=== PATIENT | female | born 1955 | race Caucasian/White ===

== ENCOUNTER → 2018-10-20 13:53 | Outpatient (CLI) | payer OTHER, SELFPAY ==
--- NOTE | 2018-10-20 | DI.MG.S_ITS ---
BILATERAL DIGITAL SCREENING MAMMOGRAM 3D/2D WITH CAD: 10/20/2018 CLINICAL: Routine screening. Comparison is made to exams dated: 12/09/2014 mammogram, 11/27/2006 mammogram, and 05/07/2003 mammogram - [facility]. The tissue of both breasts is predominantly fatty. Current study was also evaluated with a Computer Aided Detection (CAD) system. No significant masses, calcifications, or other findings are seen in either breast. There has been no significant interval change. IMPRESSION: NEGATIVE There is no mammographic evidence of malignancy. A 1 year screening mammogram is recommended. This exam was interpreted at Station ID: [id number]. NOTE: For mammograms, a report in lay terms will be sent to the patient. Approximately 15% of breast malignancies will not be visualized mammographically. In the management of a palpable breast mass, a negative mammogram must not discourage biopsy of a clinically suspicious lesion. Electronically Signed By: Zain braun/marleny:10/20/2018 16:37:56 letter sent: Normal Exam ACR BI-RADS Category 1: Negative 3341F
== END ==
PROVIDERS: PCP Family Medicine; Visit Provider Family Medicine
DX: Z12.31 Encounter for screening mammogram for malignant neoplasm of breast (principal)
CPT/HCPCS: 77063; 77067

== ENCOUNTER → 2020-12-03 10:49 | Outpatient (CLI) | payer OTHER, BC, SELFPAY ==
--- NOTE | 2020-12-03 10:54 | DI.MG.S_ITS ---
BILATERAL DIGITAL SCREENING MAMMOGRAM 3D/2D WITH CAD: 12/03/2020 CLINICAL: Routine screening. Comparison is made to exams dated: 10/20/2018 mammogram, 12/09/2014 mammogram, and 11/27/2006 mammogram - [facility]. The tissue of both breasts is predominantly fatty. Current study was also evaluated with a Computer Aided Detection (CAD) system. No significant masses, calcifications, or other findings are seen in either breast. There has been no significant interval change. IMPRESSION: NEGATIVE There is no mammographic evidence of malignancy. A 1 year screening mammogram is recommended. This exam was interpreted at Station ID: [id number]. NOTE: For mammograms, a report in lay terms will be sent to the patient. Approximately 15% of breast malignancies will not be visualized mammographically. In the management of a palpable breast mass, a negative mammogram must not discourage biopsy of a clinically suspicious lesion. Electronically Signed By: Damián Sanchez M.D., jr/marleny:12/05/2020 09:30:35 letter sent: Normal Exam ACR BI-RADS Category 1: Negative 3341F
== END ==
PROVIDERS: PCP Family Medicine; Referring Provider Family Medicine; Visit Provider Family Medicine
DX: Z12.31 Encounter for screening mammogram for malignant neoplasm of breast (principal)
CPT/HCPCS: 77063; 77067

== ENCOUNTER → 2022-09-21 16:16 | Outpatient (CLI) | payer MEDICARE, SELFPAY ==
[2022-09-21 17:34] LABS: Add Manual Diff / Slide Review NO; Basophils Absolute Auto 0 /uL (0-100); Basophils Percent Auto 0.3 % (0-2); Eosinophils Absolute Auto 100 /uL (0-450); Eosinophils Percent Auto 1.3 % (2-4); Hematocrit 45.4 % (36-46); Hemoglobin 16.1 g/dL (12.0-16.0); Lymphocytes Absolute Auto 2500 /uL (1100-4500); Lymphocytes Percent Auto 28.1 % (25-40); Mean Corpuscular HGB Conc 35.5 % (30-36); Mean Corpuscular Hemoglobin 33.6 PG (26-34); Mean Corpuscular Volume 94.5 fL (80-100); Monocytes Absolute Auto 700 /uL (0-900); Monocytes Percent Auto 7.9 % (3-14); Neutrophils Absolute Auto 5600 /uL (1500-7000); Neutrophils Percent Auto 62.4 % (50-75); Platelet Count 110 X10^3/uL (150-400); Red Cell Distribution Width 13.2 % (11.6-14.8); White Blood Cell Count 8.9 X10^3/uL (4.5-11.0)
[2022-09-21 18:06] LABS: Alanine Aminotransferase 31 IU/L (<35); Albumin 4.4 g/dL (3.5-5.0); Albumin Globulin Ratio 1.4 (1.0-2.8); Alkaline Phosphatase 74 U/L (38-126); Amylase 59 U/L (30-110); Aspartate Aminotransferase 34 IU/L (14-36); BUN Creatinine Ratio 25.8 (6-22); Bilirubin Total 0.5 mg/dL (0.2-1.3); Blood Urea Nitrogen 17 mg/dL (7-17); C-Reactive Protein Quant < 0.5 mg/dL (<1.0); Calcium 9.3 mg/dL (8.4-10.2); Carbon Dioxide 27 mmol/L (22-32); Chloride 107 mmol/L (98-107); Estimated Glomerular Filt Rate > 60 mL/min (>60); Globulin 3.1 g/dL (1.7-4.1); Glucose 76 mg/dL (80-110); HEMOLYSIS < 15 (0-50); Lipase 64 U/L (23-300); Potassium 3.4 mmol/L (3.4-5.1); Sodium 143 mmol/L (137-145); Total Protein 7.5 g/dL (6.3-8.2)
[2022-09-21 18:13] LABS: NT-proBNP (BNP-Adult 18+) 198 pg/mL (<125)
[2022-09-21 21:35] LABS: Erythrocyte Sedimentation Rate 5 MM/HR (0-20)
== END ==
PROVIDERS: PCP Family Medicine; Referring Provider Family Medicine; Visit Provider Family Medicine
DX: R10.13 Epigastric pain (principal); R01.1 Cardiac murmur, unspecified; R60.9 Edema, unspecified
CPT/HCPCS: 36415; 80053; 82150; 83690; 83880; 85025; 85651; 86140

== ENCOUNTER → 2022-09-27 13:39 | Outpatient (CLI) | payer MEDICARE, OTHER, SELFPAY ==
--- NOTE | 2022-09-27 | DI.ECHO.S_ITS ---
[facility]---------+ [facility] +---------+ : : [address] : : [address] : : : : [id number] : : : : Phone: [phone]+ Echocardiogram Report + + :Name: KIRSTIN ANGELO Study Date: 09/27/2022 Height: 66 in : :[facility] ReadingLocation: Weight: 210 lb : : Gender: Female BSA: 2.0 m2 : :: 1955 Age: 67 yrs BP: 163/83 mmHg: :Reason For Study: CARDIAC MURMUR : :Ordering Physician: BETHANY, : :LEXUS Performed By: Cyndi Schuler : :Referring: LEXUS SIMS : + + Interpretation Summary The study quality was technically difficult. The ejection fraction is estimated to be 55-60%. The right ventricle is normal in size and function. Pulmonary artery pressures cannot be estimated because of the lack of a measurable TR jet velocity but the IVC suggests a CVP of around 3 mmHg. There is mild aortic stenosis. There is mild aortic regurgitation. Procedure: A two-dimensional transthoracic echocardiogram with color flow and Doppler was performed. The study quality was technically difficult. There is no prior echocardiogram noted for this patient. The patient was in sinus rhythm with heart rates between 77-86 bpm during the exam. Left Ventricle: The left ventricle is normal in size and wall thickness. The ejection fraction is estimated to be 55-60%. There are no obvious focal wall motion abnormalities noted but poor endocardial definition reduces the sensitivity for the detection of such. Diastolic parameters suggest probable normal left ventricular diastolic function and normal filling pressures. Right Ventricle: The right ventricle is normal in size and function. Atria: The left atrial size is normal. Right atrial size is normal. There is no Doppler evidence for an interatrial shunt. Mitral Valve: The mitral valve is normal in structure and function. There is trace mitral regurgitation. Aortic Valve: The aortic valve is mildly calcified. The peak aortic velocity is 2.5 m/sec. The aortic valve mean gradient is 13 mmHg. There is mild aortic stenosis. There is mild aortic regurgitation. Tricuspid Valve: The tricuspid valve is normal in structure and function. No tricuspid regurgitation. Pulmonary artery pressures cannot be estimated because of the lack of a measurable TR jet velocity but the IVC suggests a CVP of around 3 mmHg. Pulmonic Valve: The pulmonic valve is not well visualized. There is no pulmonic valvular regurgitation. Great Vessels: The aortic root is normal size. The dimensions of the ascending aorta are normal. The IVC is of normal diameter and collapses greater than 50% with a sniff. This suggests a low right atrial pressure of 3 mm Hg. Pericardium/ Pleura There is no pericardial effusion. There is no pleural effusion. MMode/2D Measurements & Calculations LVIDd: 5.5 cm LVOT diam: 2.1 cm LVIDs: 3.3 cm Ao root diam: 3.0 cm FS: 39.5 % asc Aorta Diam: 3.2 cm EPSS: 0.91 cm Ao Arch Diam (Prox Trans): 3.1 cm IVSd: 1.1 cm LVPWd: 0.99 cm LV poole. diameter/BSA (cm/m^2): 2.7 LV sys. diameter/BSA (cm/m^2): 1.6 LA A2 area: 21.0 cm2 RA long axis: 4.6 cm LA A4 area: 20.6 cm2 RA area: 13.5 cm2 LA length (vol): 5.5 cm RA vol: 33.6 ml LA vol: 66.3 ml RA : 16.5 ml/m2 LA vol index: 32.5 ml/m2 IVC diam: 1.1 cm RVD1 (basal): 3.0 cm RVD2 (mid): 1.9 cm TAPSE: 2.2 cm Doppler Measurements & Calculations Ao V2 max: 250.0 cm/sec LVOT Max Tim: 124.9 cm/sec Ao V2 mean: 165.7 cm/sec LV V1 max P.3 mmHg Ao max P.0 mmHg LV V1 VTI: 26.7 cm Ao mean P.7 mmHg SVETLANA(I,D): 1.7 cm2 Ao V2 VTI: 52.5 cm SVETLANA(V,D): 1.7 cm2 sev ratio: 0.51 SVETLANA indexed to BSA (cm^2/m^2): 0.85 AI P1/2t: 466.7 msec AI dec slope: 212.8 cm/sec2 MV E max tim: 90.0 cm/sec PA pr(Accel): 49.9 mmHg MV A max tim: 134.8 cm/sec MV E/A: 0.67 Med Peak E' Tim: 7.9 cm/sec E/E' med: 11.4 Lat Peak E' Tim: 9.4 cm/sec E/E' lat: 9.6 E/e' average: 10.5 MV dec time: 0.22 sec SV(LVOT): 91.5 ml Reading Physician:PM
== END ==
PROVIDERS: PCP Family Medicine; Referring Provider Family Medicine; Visit Provider Family Medicine
DX: R01.1 Cardiac murmur, unspecified (principal); I35.0 Nonrheumatic aortic (valve) stenosis; I35.1 Nonrheumatic aortic (valve) insufficiency
CPT/HCPCS: 93306

== ENCOUNTER → 2023-07-19 12:49 | Outpatient (CLI) | payer MEDICARE, OTHER, SELFPAY ==
--- NOTE | 2023-07-19 | DI.MG.S_ITS ---
BILATERAL DIGITAL SCREENING MAMMOGRAM 3D/2D WITH CAD: 07/19/2023 CLINICAL: Routine screening. Comparison is made to exams dated: 12/03/2020 mammogram, 10/20/2018 mammogram, and 12/09/2014 mammogram - [facility]. There are scattered areas of fibroglandular density in both breasts (category b / 25%-50% glandular tissue). Current study was also evaluated with a Computer Aided Detection (CAD) system. No significant masses, calcifications, or other findings are seen in either breast. There has been no significant interval change. IMPRESSION: NEGATIVE There is no mammographic evidence of malignancy. A 1 year screening mammogram is recommended. Based on the Tyrer Cuzick model (a risk assessment model) the patient's lifetime risk is 6.9% and her 10 year risk is 3.5%. According to the ACR, ACS, and NCCN guidelines, an annual breast MRI exam along with mammogram is recommended if the patient's lifetime risk is 20% or greater. This exam was interpreted at Station ID: [id number]. NOTE: For mammograms, a report in lay terms will be sent to the patient. Approximately 15% of breast malignancies will not be visualized mammographically. In the management of a palpable breast mass, a negative mammogram must not discourage biopsy of a clinically suspicious lesion. Electronically Signed By: Jodi Caicedo M.D., PH.D marco/marelny:07/19/2023 23:27:34 letter sent: Normal Exam ACR BI-RADS Category 1: Negative 3341F
== END ==
LOC: MAMMO 12:50
PROVIDERS: PCP Family Medicine; Referring Provider Family Medicine; Visit Provider Family Medicine
DX: Z12.31 Encounter for screening mammogram for malignant neoplasm of breast (principal); R92.323 Mammographic fibroglandular density, bilateral breasts
CPT/HCPCS: 77063; 77067

== ENCOUNTER → 2023-09-16 11:54 | Outpatient (CLI) | payer MEDICARE, OTHER, SELFPAY ==
--- NOTE | 2023-09-16 11:56 | DI.RAD.S_ITS ---
PROCEDURE: XR DEXA AXIAL SKELETON INDICATIONS: POST MENOPAUSAL COMPARISON: None. FINDINGS: Lumbar Spine: Bone mineral density 1.086 g/cm2, T score 0.4, normal. Left femoral neck: Bone mineral density 0.724 g/cm2, T score -1.1, osteopenia. Left hip: Bone mineral density 0.911 g/cm2, T score -0.3, normal. Right Hip: Bone mineral density 0.883 g/cm2, T score -0.5, normal. Right Femoral Neck: Bone mineral density 0.79 g/cm2, T score -0.5, normal. Fracture Risk Calculation (when applicable): 10-year fracture risk of a major osteoporotic fracture 8.0 and of a hip fracture 1.1. (T score greater or equal to -1.0 to: NORMAL) (T score from -1.1 to -2.4: OSTEOPENIA) (T score less than or equal to -2.5: OSTEOPOROSIS) IMPRESSION: Osteopenia. Follow-up guidelines as follows: Osteoporosis: Consider a repeat DEXA and Vertebral Fracture Assessment (VFA) exam in 2 years or sooner if medically necessary, to reassess this patient's status. Osteopenia: Consider a repeat DEXA in 2-3 years to reassess this patient's status, or if there is a new clinical indication. Normal: Consider a repeat DEXA in 5 years or sooner, or if there is a new clinical indication. Dictated by: Madhu Hammond M.D. on 09/16/2023 at 14:30 Approved by: Madhu Hammond M.D. on 09/16/2023 at 14:31
== END ==
PROVIDERS: PCP Family Medicine; Referring Provider Family Medicine; Visit Provider Family Medicine
DX: Z13.820 Encounter for screening for osteoporosis (principal); Z78.0 Asymptomatic menopausal state; M85.80 Other specified disorders of bone density and structure, unspecified site
CPT/HCPCS: 77080

== ENCOUNTER 2024-03-02 11:22 | Inpatient (IN) | payer MEDICARE, OTHER, SELFPAY ==
[2024-03-02] VITALS (18 sets, daily range): BP systolic 116–211; BP diastolic 64–84; PULSE 80–92; RESP 12–39; TEMP 36.6–36.9; O2SAT 90–98; BMI 34.7
[2024-03-02 11:52] LABS: Add Manual Diff / Slide Review NO; Basophils Absolute Auto 0 /uL (0-100); Basophils Percent Auto 0.2 % (0-2); Eosinophils Absolute Auto 0 /uL (0-450); Eosinophils Percent Auto 0.1 % (2-4); Hematocrit 46.7 % (36-46); Hemoglobin 16.4 g/dL (12.0-16.0); Lymphocytes Absolute Auto 1600 /uL (1100-4500); Mean Corpuscular HGB Conc 35.2 % (30-36); Mean Corpuscular Hemoglobin 33.1 PG (26-34); Mean Corpuscular Volume 93.9 fL (80-100); Monocytes Absolute Auto 1200 /uL (0-900); Monocytes Percent Auto 6.7 % (3-14); Neutrophils Absolute Auto 15000 /uL (1500-7000); Platelet Count 155 X10^3/uL (150-400); Red Blood Cell Count 4.97 X10^6/uL (4.0-5.2); Red Cell Distribution Width 13.1 % (11.6-14.8); White Blood Cell Count 17.9 X10^3/uL (4.5-11.0)
--- NOTE | 2024-03-02 11:55 | EKG_ITS ---
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 Inferior infarct , age undetermined Electronically Signed On 03-02-2024 15:31:48 PDT by Noé Lewis
--- NOTE | 2024-03-02 12:01 | ED_ITS ---
HPI - Nausea/Vomiting/Diarrhea General Chief complaint: Weakness Stated complaint: Weakness, shaking Time Seen by Provider: 03/02/24 11:45 Source: patient, family, RN notes reviewed, old records reviewed and other (Dr. Sahni) Mode of arrival: Wheelchair Limitations: no limitations History of Present Illness HPI Narrative: 68-year-old female with history of hypertension, dyslipidemia, rheumatoid arthritis, Sjogren's and lupus who presents with complaint of feeling generally unwell epigastric pain without radiation, nausea occasional dry heaves, intermittent diarrhea that has been yellowish coloration for the past week. Patient states no fevers, she is felt chilled. Today she felt very shaky, went to her primary care physician and legs gave out while she was in the office has felt very weak in the last 24 hours. States she has had dry heaves but not constant. She has been able to keep some food and drink down. Describes epigastric pain without radiation elsewhere denies any chest pain or shortness of breath, no syncope. She states she has sometimes had forward bowel movements followed by diarrhea 2 or 3 times daily typically associated after she eats food. She states the stool has been bright yellow. Denies dysuria, urgency frequency or incontinence. No new swelling in extremities. Feet are little bit purplish in color patient and state that is her normal baseline and she has had vascular imaging in the past. Patient notes was started on chlorthalidone on by her primary care recently. She states no prior surgeries otherwise. States allergy to penicillin caused a seizure as well as sulfa. Smokes approximately pack and a half daily of tobacco, no regular alcohol, denies recreational drugs. Primary care is Dr. Sahni. Related Data Home Medications Medication Instructions Recorded Confirmed atorvastatin 10 mg tablet 10 mg PO DAILY 03/02/24 03/02/24 cevimeline 30 mg capsule 30 cap PO BID 03/02/24 03/02/24 chlorthalidone 25 mg tablet 25 mg PO DAILY 03/02/24 03/02/24 doxycycline hyclate 100 mg capsule 100 mg PO BID 03/02/24 03/02/24 furosemide 20 mg tablet 60 mg PO DAILY 03/02/24 03/02/24 hydroxychloroquine 200 mg tablet 200 mg PO BID 03/02/24 03/02/24 levothyroxine 75 mcg tablet 75 mcg PO DAILY 03/02/24 03/02/24 meloxicam 15 mg tablet 15 mg PO DAILY 03/02/24 03/02/24 nortriptyline 25 mg capsule 25 mg PO ONCE PM 03/02/24 03/02/24 omeprazole 20 mg capsule,delayed 20 mg PO BID 03/02/24 03/02/24 release venlafaxine 37.5 mg 37.5 mg PO DAILY 03/02/24 03/02/24 capsule,extended release 24 hr Allergies Allergy/AdvReac Type Severity Reaction Status Date / Time Penicillins Allergy Seizure Verified 03/02/24 11:28 Review of Systems Review of Systems ROS Unobtainable: All systems reviewed & are unremarkable except as noted in HPI and below Patient History Social History household members: spouse Smoking Status: Current every day smoker alcohol intake: never Smoking Status: Current every day smoker tobacco type: cigarettes Substance Use Type: does not use Exam Narrative Exam Narrative: GENERAL: Alert and oriented x three, female in mild distress HEENT: Head normocephalic, atraumatic, EOMI, pupils reactive, face symmetric, moist mucous membranes NECK: Supple, full range of motion CARDIOVASCULAR: Regular rate and rhythm without murmurs, rubs or gallops. No JVD. No edema bilateral lower extremities. RESPIRATORY: Breath sounds equal bilaterally, no wheezes rales or rhonchi. No tachypnea accessory muscle use. ABDOMEN: Soft, nontender. Nondistended. Normoactive bowel sounds all 4 quadrants. No guarding or rebound, rigidity, no mass : No CVA tenderness EXTREMITIES: Normal range of motion, no clubbing or edema. Sensation intact. Patient does have purple discoloration of her toes to the mid foot, patient has been note this is her normal. Bilateral extremities are warm to the touch. NEUROLOGICAL: Cranial nerves II through XII grossly intact. Moving all extremities SKIN: Warm, dry, no petechiae, no rashes or lesions otherwise noted. Initial Vital Signs Initial Vital Signs: Vital Signs Temperature 98.4 F 03/02/24 11:28 Pulse Rate 80 03/02/24 11:28 Respiratory Rate 20 03/02/24 11:28 Blood Pressure 173/72 H 03/02/24 11:28 Pulse Oximetry 98 03/02/24 11:28 Oxygen Delivery Method Room Air 03/02/24 11:28 Course Orders Ordered: ED Orders 03/02/24 11:42 Complete Blood Count AUTO DIFF Stat Comprehensive Metabolic Panel Stat Lactate (Lactic Acid) Stat Lipase Stat Procalcitonin Stat 03/02/24 11:46 EKG-12 Lead Stat 03/02/24 12:07 CT abdomen pelvis wo con Stat 03/02/24 12:20 Blood Culture Stat Lactated Ringer's (Lactated Ringers) 1,000 mls @ 150 mls/hr IV CONT TEENA Last Admin: 03/02/24 14:49 Dose: 150 mls/hr Documented By: RL Ondansetron HCl (Ondansetron 4 Mg/2 Ml Inj) 4 mg IV Q6HR PRN PRN Reason: Nausea And Vomiting Pantoprazole Sodium (Pantoprazole 40 Mg Vial) 20 mg IV DAILY TEENA Discontinued Medications Sodium Chloride (Normal Saline 0.9%) 1,000 mls @ 1,000 mls/hr IV BOLUS ONE Stop: 03/02/24 12:58 Last Infusion: 03/02/24 14:43 Dose: Infused Documented By: Admin: 03/02/24 12:33 Dose: 1,000 mls/hr Documented By: RL Lorazepam (Lorazepam 2 Mg/Ml Inj) 0.5 mg IV NOW ONE Stop: 03/02/24 12:54 Last Admin: 03/02/24 13:02 Dose: 0.5 mg Documented By: FATUMA Ondansetron HCl (Ondansetron 4 Mg/2 Ml Inj) 4 mg IV NOW ONE Stop: 03/02/24 12:00 Last Admin: 03/02/24 12:20 Dose: 4 mg Documented By: RL Potassium Chloride (Potassium Chloride 20 Meq Tab) 40 meq PO NOW ONE Stop: 03/02/24 12:08 Last Admin: 03/02/24 12:33 Dose: 40 meq Documented By: RL Vital Signs Vital signs: Vital Signs - 8 hr 03/02/24 11:28 03/02/24 11:57 03/02/24 12:01 Temperature 98.4 F Pulse Rate 80 91 H Respiratory Rate 20 24 Blood Pressure 173/72 H Pulse Oximetry 98 95 Oxygen Delivery Method Room Air Room Air Oxygen Flow Rate 03/02/24 12:01 03/02/24 12:30 03/02/24 12:30 Temperature Pulse Rate 89 Respiratory Rate 20 Blood Pressure 142/72 H 154/67 H Pulse Oximetry 94 Oxygen Delivery Method Room Air Oxygen Flow Rate 03/02/24 12:50 03/02/24 12:50 03/02/24 13:00 Temperature Pulse Rate 90 86 Respiratory Rate 15 24 Blood Pressure 179/79 H Pulse Oximetry 93 90 L Oxygen Delivery Method Oxygen Flow Rate 03/02/24 13:01 03/02/24 13:01 03/02/24 13:09 Temperature Pulse Rate 86 92 H Respiratory Rate 39 H 31 H Blood Pressure 180/77 H Pulse Oximetry 91 94 Oxygen Delivery Method Oxygen Flow Rate 03/02/24 13:09 03/02/24 13:30 03/02/24 13:31 Temperature Pulse Rate 87 87 Respiratory Rate 18 Blood Pressure 211/84 H Pulse Oximetry 94 95 Oxygen Delivery Method Oxygen Flow Rate 03/02/24 13:31 03/02/24 14:00 03/02/24 14:01 Temperature Pulse Rate 87 86 Respiratory Rate 21 Blood Pressure 169/74 H Pulse Oximetry 97 Oxygen Delivery Method Oxygen Flow Rate 03/02/24 14:01 03/02/24 14:30 03/02/24 14:30 Temperature Pulse Rate 87 Respiratory Rate 17 Blood Pressure 148/64 H 157/68 H Pulse Oximetry 95 Oxygen Delivery Method Nasal Cannula Oxygen Flow Rate 4 03/02/24 15:00 03/02/24 15:00 Temperature Pulse Rate 88 Respiratory Rate 15 Blood Pressure 157/70 H Pulse Oximetry 97 Oxygen Delivery Method Room Air Oxygen Flow Rate 0 MDM - Nausea/Vomiting/Diarrhea Lab Data 03/02/24 11:42 03/02/24 11:42 Labs: Lab Results 03/02/24 03/02/24 Range/Units 11:42 14:28 WBC 17.9 H (4.5-11.0) X10^3/uL RBC 4.97 (4.0-5.2) X10^6/uL Hgb 16.4 H (12.0-16.0) g/dL Hct 46.7 H (36-46) % MCV 93.9 (80-100) fL MCH 33.1 (26-34) PG MCHC 35.2 (30-36) % RDW 13.1 (11.6-14.8) % Plt Count 155 (150-400) X10^3/uL Neut % (Auto) 84.0 H (50-75) % Lymph % (Auto) 9.0 L (25-40) % [place] % (Auto) 6.7 (3-14) % Eos % (Auto) 0.1 L (2-4) % Baso % (Auto) 0.2 (0-2) % Neut # (Auto) 06175 H (7991-2161) /uL Lymph # (Auto) 1600 (6473-2935) /uL [place] # (Auto) 1200 H (0-900) /uL Eos # (Auto) 0 (0-450) /uL Baso # (Auto) 0 (0-100) /uL Sodium 136 L (137-145) mmol/L Potassium 3.1 L (3.4-5.1) mmol/L Chloride 98 (98-107) mmol/L Carbon Dioxide 24 (22-32) mmol/L BUN 39 H (7-17) mg/dL Creatinine 1.70 H (0.52-1.04) mg/dL Estimated GFR 33 L (>60) mL/min BUN/Creatinine Ratio 22.9 H (6-22) Glucose 129 H (80-110) mg/dL Lactate 3.2 H 1.2 (0.7-2.1) mmol/L Calcium 7.4 L (8.4-10.2) mg/dL Total Bilirubin 0.8 (0.2-1.3) mg/dL AST 43 H (14-36) IU/L ALT 33 (<35) IU/L Alkaline Phosphatase 84 (38-126) U/L Total Protein 7.5 (6.3-8.2) g/dL Albumin 4.4 (3.5-5.0) g/dL Globulin 3.1 (1.7-4.1) g/dL Albumin/Globulin Ratio 1.4 (1.0-2.8) Lipase 136 (23-300) U/L Procalcitonin 0.058 (<0.5) ng/mL Urine Dip Bedside Urine Glucose Negative Bedside Urine Bilirubin - Negative Bedside Urine Ketone - Negative Urine Specific [place] 1.015 Bedside Urine Occult Blood - Negative Bedside Urine pH 6.0 Bedside Urine Protein - Negative Bedside Urine Urobilinogen - Negative Bedside Urine Nitrite - Negative Bedside Urine Leukocytes - Negative Esterase Imaging Data CT scan - abdomen/pelvis: Radiologist's Impression: Close Abdomen/Pelvis CT (Signed) Garrick Duff - 03/02/24 Bone Densitometry (Signed) Madhu Hammond - 09/16/23 Mammogram Screening (Signed) Chalino Caicedoe - 07/19/23 Echocardiogram Ultrasound (Signed) Zev Chua - 09/27/22 Mammogram Screening (Signed) Damián Sanchez - 12/03/20 Mammogram Screening (Signed) Zavala,Zain - 10/20/18 Launch?[address] [address] [address] Scan Report Signed Patient: Billie Juarez MR#: [id number] : 1955 Acct:[id number] Age/Sex: 68 / F Date of Service: 03/02/24 Loc: ED Accession Number: [id number] Procedure: CT abdomen pelvis wo con Ordering Provider: Radha Marin D.O. PROCEDURE: CT ABDOMEN PELVIS WO CON INDICATIONS: n/v/diarrhea x 1 wk, winnie, no flank pain TECHNIQUE: Axial sections were acquired from the lung bases to the pubic symphysis. Coronal and sagittal reformats were performed. For radiation dose reduction, the following was used: automated exposure control, adjustment of mA and/or kV according to patient size. COMPARISON: None. FINDINGS: Image quality: Diagnostic. Lower Chest: 1.4 cm noncalcified pulmonary nodule, subpleural location, right lower lobe. URINARY: Right Kidney: No stones or hydronephrosis. Right Ureter: No hydroureter. Left Kidney: No stone or hydronephrosis. Small exophytic hemorrhagic cyst. No suspicious mass. Left Ureter: No hydroureter. Bladder: Normal wall thickness. No stones. ABDOMEN: Liver: No contour-deforming solid mass. Gallbladder: Surgically absent Biliary ducts: No biliary dilation. Pancreas: No ductal dilation. Spleen: Size is within normal limits. Adrenal Glands: No adrenal nodules. Bilateral adrenal adenomatous hypertrophy. Stomach and Bowel: Normal colonic caliber, without significant wall thickening. Mild diverticulosis without evidence of acute diverticulitis. Peritoneum: No abnormal intraperitoneal fluid. No free air. Ventral Wall: No hernia. Abdominal Nodes: No enlarged retroperitoneal or mesenteric lymph nodes. Vessels: Aorta and inferior vena cava are normal in size. PELVIS: Pelvic Organs: Unremarkable. Pelvic Nodes: Unremarkable. Miscellaneous: No inguinal hernias are seen. Bones: Lumbar degenerative change. No lytic or blastic bony lesions. No compression fractures. Left paracentral disc protrusion at L3-L4. IMPRESSION: 1. No renal stone, ureteral stone, or hydronephrosis. 2. 1.4 cm right pulmonary nodule. 3. Incidental note made of a left paracentral disc protrusion at L3-L4. 4. Remote cholecystectomy Recommend nonemergent chest CT in this patient with a 1.4 cm right basilar pulmonary nodule Dictated by: Garrick Duff M.D. on 03/02/2024 at 13:49 Approved by: Garrick Duff M.D. on 03/02/2024 at 13:54 ECG Data Attestation: I personally reviewed and interpreted this ECG as follows: Interpretation: EMR read as accelerated junctional rhythm but there has quite a bit of motion artifact so maybe sinus. Rate is 91 QRS is 72 QTC is 477 MDM Narrative Medical decision making narrative: Labs show white count of 17.9, hemoglobin 16 with platelets of 155, predominance of neutrophils at 84%. Sodium is 136 potassium 3.1 chloride 98 with a CO2 of 24 BUN 39 creatinine of 1.7 this is increased from prior on 09/21/2022 when patient's creatinine was 0.66, glucose is 129 calcium 7.4, bilirubin 0.8 with a AST of 43 ALT of 33 alk-phos 84 and a lipase of 136. Procalcitonin negative at 0.058. Lactate plan to repeat at 3:00 a.m. Point of care urine CT abdomen pelvis shows 1.4 cm noncalcified pulmonary nodule right lower lobe cuff small exophytic hemorrhagic cyst of the left kidney no suspicious mass, lumbar degenerative change no lytic or blastic bony lesions left paracentral disc protrusion L3-L4. Remote cholecystectomy noted. Recommend patient have nonemergent chest CT for pulmonary nodule. This was relayed to the patient and family. Patient was given a L of fluids, Zofran, oral potassium. Patient is still had nausea but was able to tolerate oral potassium was given a dose of Ativan. This did make her a little bit sleepy and patient did require some oxygen afterwards. Spoke with Dr. Sahni for observation for WINNIE, hypokalemia, lactic acidosis maybe related to patient's recent chlorthalidone although patient does have a white count but no clear source of infection found currently. Asked that we order fluids, plan for lactated Ringer's at 150 mL/hour for patient's dehydration, repeat lactate is currently pending he will see the patient. Discharge Plan Departure Patient Disposition: Admitted As Inpatient Clinical Impression: WINNIE (acute kidney injury), Hypokalemia, Acidosis, lactic Admit Date/Time: 03/02/24 15:25 Admit Provider: Jeremy Sahni
[2024-03-02 12:03] LABS: Alanine Aminotransferase 33 IU/L (<35); Albumin 4.4 g/dL (3.5-5.0); Albumin Globulin Ratio 1.4 (1.0-2.8); Alkaline Phosphatase 84 U/L (38-126); Aspartate Aminotransferase 43 IU/L (14-36); BUN Creatinine Ratio 22.9 (6-22); Bilirubin Total 0.8 mg/dL (0.2-1.3); Blood Urea Nitrogen 39 mg/dL (7-17); Calcium 7.4 mg/dL (8.4-10.2); Carbon Dioxide 24 mmol/L (22-32); Chloride 98 mmol/L (98-107); Estimated Glomerular Filt Rate 33 mL/min (>60); Globulin 3.1 g/dL (1.7-4.1); Glucose 129 mg/dL (80-110); HEMOLYSIS < 15 (0-50); Lipase 136 U/L (23-300); Potassium 3.1 mmol/L (3.4-5.1); Sodium 136 mmol/L (137-145); Total Protein 7.5 g/dL (6.3-8.2)
--- NOTE | 2024-03-02 12:07 | DI.CT.S_ITS ---
PROCEDURE: CT ABDOMEN PELVIS WO CON INDICATIONS: n/v/diarrhea x 1 wk, saniya, no flank pain TECHNIQUE: Axial sections were acquired from the lung bases to the pubic symphysis. Coronal and sagittal reformats were performed. For radiation dose reduction, the following was used: automated exposure control, adjustment of mA and/or kV according to patient size. COMPARISON: None. FINDINGS: Image quality: Diagnostic. Lower Chest: 1.4 cm noncalcified pulmonary nodule, subpleural location, right lower lobe. URINARY: Right Kidney: No stones or hydronephrosis. Right Ureter: No hydroureter. Left Kidney: No stone or hydronephrosis. Small exophytic hemorrhagic cyst. No suspicious mass. Left Ureter: No hydroureter. Bladder: Normal wall thickness. No stones. ABDOMEN: Liver: No contour-deforming solid mass. Gallbladder: Surgically absent Biliary ducts: No biliary dilation. Pancreas: No ductal dilation. Spleen: Size is within normal limits. Adrenal Glands: No adrenal nodules. Bilateral adrenal adenomatous hypertrophy. Stomach and Bowel: Normal colonic caliber, without significant wall thickening. Mild diverticulosis without evidence of acute diverticulitis. Peritoneum: No abnormal intraperitoneal fluid. No free air. Ventral Wall: No hernia. Abdominal Nodes: No enlarged retroperitoneal or mesenteric lymph nodes. Vessels: Aorta and inferior vena cava are normal in size. PELVIS: Pelvic Organs: Unremarkable. Pelvic Nodes: Unremarkable. Miscellaneous: No inguinal hernias are seen. Bones: Lumbar degenerative change. No lytic or blastic bony lesions. No compression fractures. Left paracentral disc protrusion at L3-L4. IMPRESSION: 1. No renal stone, ureteral stone, or hydronephrosis. 2. 1.4 cm right pulmonary nodule. 3. Incidental note made of a left paracentral disc protrusion at L3-L4. 4. Remote cholecystectomy Recommend nonemergent chest CT in this patient with a 1.4 cm right basilar pulmonary nodule Dictated by: Garrick Duff M.D. on 03/02/2024 at 13:49 Approved by: Garrick Duff M.D. on 03/02/2024 at 13:54
[2024-03-02 12:15] LABS: Lactate (Lactic Acid) 3.2 mmol/L (0.7-2.1)
[2024-03-02] MEDS: ONDANSETRON 4 MG/2 ML INJ IV (12:20)
[2024-03-02] MEDS: SODIUM CHLORIDE 0.9% 1,000 ML 1000 ML IV (12:33)
[2024-03-02] MEDS: POTASSIUM CHLORIDE 20 MEQ TAB 40 MEQ PO (12:33)
[2024-03-02 12:35] LABS: Procalcitonin 0.058 ng/mL (<0.5)
[2024-03-02] MEDS: LORazepam 2 MG/ML INJ 0.5 MG IV (13:02)
[2024-03-02 13:41] LABS: Reflexed Lactate in 2 Hours Y
[2024-03-02 14:45] LABS: Lactate 2HR (Lactic Acid Rflx) 1.2 mmol/L (0.7-2.1)
[2024-03-02] MEDS: LACTATED RINGERS 1,000 ML 150 ML IV (14:49)
--- NOTE | 2024-03-02 18:38 | P.HP_ITS ---
History of Present Illness History of Present Illness Date Patient Seen: 03/02/24 Time Patient Seen: 18:38 Date of Onset of Symptoms: 02/24/24 Chief complaint: Weakness, shaking Narrative: Patient is a 68-year-old female well known to me who presents for nausea and vomiting for the last week. Basically developed some epigastric pain. Does not radiate does not go through to her back. Has had a history of pancreatitis. Recently started on chlorthalidone for her hypertension. She has been having basically intermittent diarrhea mixed with normal stools. Some yellowish discoloration. Constantly nauseated. With dry heaves. Getting worse. Pain does not seem to get better worse. She is taking meloxicam. No other significant change. She basically is weak and shaky and basically does not have any strength. She has not been drinking much has not been eating much. Decreased urine. Has no other significant new change or complaints. 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 Has been managed by printing equipment mechanic. Past surgical history [facility] Social History household members: spouse Smoking Status: Current every day smoker alcohol intake: never Meds Home Medications and Allergies Home Medications Medication Instructions Recorded Confirmed Type atorvastatin 10 mg tablet 10 mg PO DAILY 03/02/24 03/02/24 History cevimeline 30 mg capsule 30 cap PO BID 03/02/24 03/02/24 History chlorthalidone 25 mg tablet 25 mg PO DAILY 03/02/24 03/02/24 History doxycycline hyclate 100 mg capsule 100 mg PO BID 03/02/24 03/02/24 History furosemide 20 mg tablet 60 mg PO DAILY 03/02/24 03/02/24 History hydroxychloroquine 200 mg tablet 200 mg PO BID 03/02/24 03/02/24 History levothyroxine 75 mcg tablet 75 mcg PO DAILY 03/02/24 03/02/24 History meloxicam 15 mg tablet 15 mg PO DAILY 03/02/24 03/02/24 History nortriptyline 25 mg capsule 25 mg PO ONCE PM 03/02/24 03/02/24 History omeprazole 20 mg capsule,delayed 20 mg PO BID 03/02/24 03/02/24 History release venlafaxine 37.5 mg 37.5 mg PO DAILY 03/02/24 03/02/24 History capsule,extended release 24 hr Allergies Allergy/AdvReac Type Severity Reaction Status Date / Time Penicillins Allergy Seizure Verified 03/02/24 11:28 Review of Systems Review of Systems Narrative: All negative except above. No urinary complaints. No fevers chills chest pain shortness for breath. Exam Vital Signs (past 8 hours): - 03/02/24 11:28 03/02/24 11:57 03/02/24 12:01 Temperature 98.4 F Pulse Rate 80 91 H Respiratory Rate 20 24 Blood Pressure 173/72 H Pulse Oximetry 98 95 Oxygen Delivery Method Room Air Room Air Oxygen Flow Rate 03/02/24 12:01 03/02/24 12:30 03/02/24 12:30 Temperature Pulse Rate 89 Respiratory Rate 20 Blood Pressure 142/72 H 154/67 H Pulse Oximetry 94 Oxygen Delivery Method Room Air Oxygen Flow Rate 03/02/24 12:50 03/02/24 12:50 03/02/24 13:00 Temperature Pulse Rate 90 86 Respiratory Rate 15 24 Blood Pressure 179/79 H Pulse Oximetry 93 90 L Oxygen Delivery Method Oxygen Flow Rate 03/02/24 13:01 03/02/24 13:01 03/02/24 13:09 Temperature Pulse Rate 86 92 H Respiratory Rate 39 H 31 H Blood Pressure 180/77 H Pulse Oximetry 91 94 Oxygen Delivery Method Oxygen Flow Rate 03/02/24 13:09 03/02/24 13:30 03/02/24 13:31 Temperature Pulse Rate 87 87 Respiratory Rate 18 Blood Pressure 211/84 H Pulse Oximetry 94 95 Oxygen Delivery Method Oxygen Flow Rate 03/02/24 13:31 03/02/24 14:00 03/02/24 14:01 Temperature Pulse Rate 87 86 Respiratory Rate 21 Blood Pressure 169/74 H Pulse Oximetry 97 Oxygen Delivery Method Oxygen Flow Rate 03/02/24 14:01 03/02/24 14:30 03/02/24 14:30 Temperature Pulse Rate 87 Respiratory Rate 17 Blood Pressure 148/64 H 157/68 H Pulse Oximetry 95 Oxygen Delivery Method Nasal Cannula Oxygen Flow Rate 4 03/02/24 15:00 03/02/24 15:00 03/02/24 16:25 Temperature 98.4 F Pulse Rate 88 91 H Respiratory Rate 15 12 Blood Pressure 157/70 H 116/83 Pulse Oximetry 97 95 Oxygen Delivery Method Room Air Oxygen Flow Rate 0 2 Oxygen Delivery Method Room Air Oxygen Flow Rate 2 Narrative Exam Narrative: Alert female fatigued in appearance dry heaving in my office in no acute distress Mucous membranes dry. Neck supple without adenopathy lungs are clear heart is regular rate and rhythm abdomen is soft positive bowel sounds with moderate epigastric pain no rebound guarding no masses extremities with decreased purplish color in her legs but no other changes. Neurologic exam is normal. Objective Labs 03/02/24 11:42 03/02/24 11:42 Labs: Laboratory Results - last 24 hr 03/02/24 03/02/24 11:42 14:28 WBC 17.9 H RBC 4.97 Hgb 16.4 H Hct 46.7 H MCV 93.9 MCH 33.1 MCHC 35.2 RDW 13.1 Plt Count 155 Neut % (Auto) 84.0 H Lymph % (Auto) 9.0 L [place] % (Auto) 6.7 Eos % (Auto) 0.1 L Baso % (Auto) 0.2 Neut # (Auto) 86618 H Lymph # (Auto) 1600 [place] # (Auto) 1200 H Eos # (Auto) 0 Baso # (Auto) 0 Sodium 136 L Potassium 3.1 L Chloride 98 Carbon Dioxide 24 BUN 39 H Creatinine 1.70 H Estimated GFR 33 L BUN/Creatinine Ratio 22.9 H Glucose 129 H Lactate 3.2 H 1.2 Calcium 7.4 L Total Bilirubin 0.8 AST 43 H ALT 33 Alkaline Phosphatase 84 Total Protein 7.5 Albumin 4.4 Globulin 3.1 Albumin/Globulin Ratio 1.4 Lipase 136 Procalcitonin 0.058 Assessment & Plan Assessment & Plan narrative: Acute kidney injury. Patient with no previous history. Probably secondary to dehydration. We will hydrate aggressively over the next 24 hours and watch. Etiology of dehydration is unclear but we will follow. Dehydration. Moderate. Has been aggressively hydrated through the last few hours will decrease to 125 she is taking p.o. at this time and will continue to follow recheck a.m.. Hypokalemia. Moderately decreased and given replacement in the emergency room. Will recheck a.m.. Elevated white count. Etiology is unclear. CT scan of abdomen is benign and her pain actually since this morning is discontinued and not involved. Elevation maybe stress related it is hard to tell at this point. No antibiotics at this time unless some changes. Will continue to follow re-evaluate in a.m.. Decision at that time it further workup or change. Will check urine tonight. Abdominal pain. Epigastric. Seems to be improving. [place] pancreatitis is possible but lipase is negative. On IV pantoprazole at this point. Gastritis would be the most likely cause. But seems to be improving will continue clear liquids PPI and re-evaluate. Hypertension. Will restart medications but follow closely. And re-evaluate after that hopefully tomorrow we can start back with her medications depending on how she is feeling. Lupus/Sjogren's. Patient will restart her usual meds and we will follow. Has been her biggest issue for some time. Followed by printing equipment mechanic no changes at this time. Depression. Seems to be doing well. We will continue to follow. Code status full. GI prophylaxis on pantoprazole. Disposition. Will see how things go she actually feels a little better since hydration and nausea meds will see how things are doing but it is unclear how long she will be here depending and what we have to workup will see what labs show tomorrow. 60 minutes spent with the patient dictation labs discussion with emergency room doctors physical exam discussion with the patient Time-Based Coding :: [TOTAL MINUTES] spent with patient and on the chart (including review of chart, obtaining history, exam, reviewing outside data, placing orders, documenting exam and treatment plan, and counseling patient) on [DATE].
[2024-03-02] MEDS: NORTRIPTYLINE HCL 25 MG CAPSULE PO (20:15)
[2024-03-02] MEDS: DOXYCYCLINE HYCLATE 100 MG TABLET PO (20:16)
[2024-03-02] MEDS: HYDROXYCHLOROQUINE 200 MG TABLET PO (20:16)
[2024-03-02 22:04] LABS: Appearance Urine UA CLEAR; Bilirubin Urine UA NEGATIVE (NEGATIVE); Color Urine UA YELLOW; Glucose Urine UA NEGATIVE (Negative); Ketones Urine UA NEGATIVE (NEGATIVE); Leukocyte Esterase Urine UA NEGATIVE (NEGATIVE); Nitrite Urine UA NEGATIVE (Negative); Occult Blood Urine UA NEGATIVE (Negative); Protein Urine UA NEGATIVE (Negative); Specific Gravity Urine UA 1.015 (1.000-1.035); Urobilinogen Urine UA 0.2 E.U./dL (0.2)
[2024-03-02 22:13] LABS: Bacteria Urine None Seen; Culture Indicated Urine Cult Not Indicated; RBC Urine None Seen (0-5/HPF); Squamous Epithelial Cell Urine 0-1 /HPF (0-5/HPF); Urine Volume 10mL (spun); WBC Urine None Seen (0-5/HPF)
[2024-03-02] MEDS: LACTATED RINGERS 1,000 ML 125 ML IV (22:43)
[2024-03-03] MEDS: LEVOTHYROXINE 75 MCG TABLET PO (05:53)
[2024-03-03 06:17] LABS: Add Manual Diff / Slide Review NO; Basophils Absolute Auto 0 /uL (0-100); Basophils Percent Auto 0.4 % (0-2); Eosinophils Absolute Auto 100 /uL (0-450); Eosinophils Percent Auto 0.9 % (2-4); Hemoglobin 14.3 g/dL (12.0-16.0); Lymphocytes Absolute Auto 2400 /uL (1100-4500); Mean Corpuscular HGB Conc 35.8 % (30-36); Mean Corpuscular Hemoglobin 33.7 PG (26-34); Mean Corpuscular Volume 94.2 fL (80-100); Monocytes Absolute Auto 800 /uL (0-900); Monocytes Percent Auto 9.1 % (3-14); Neutrophils Absolute Auto 5600 /uL (1500-7000); Neutrophils Percent Auto 62.6 % (50-75); Platelet Count 107 X10^3/uL (150-400); Red Blood Cell Count 4.25 X10^6/uL (4.0-5.2); Red Cell Distribution Width 13.2 % (11.6-14.8); White Blood Cell Count 8.9 X10^3/uL (4.5-11.0)
[2024-03-03 06:42] LABS: Alanine Aminotransferase 27 IU/L (<35); Albumin 3.3 g/dL (3.5-5.0); Albumin Globulin Ratio 1.2 (1.0-2.8); Alkaline Phosphatase 67 U/L (38-126); Aspartate Aminotransferase 43 IU/L (14-36); BUN Creatinine Ratio 23.2 (6-22); Bilirubin Total 0.6 mg/dL (0.2-1.3); Blood Urea Nitrogen 29 mg/dL (7-17); Calcium 6.8 mg/dL (8.4-10.2); Carbon Dioxide 29 mmol/L (22-32); Chloride 104 mmol/L (98-107); Estimated Glomerular Filt Rate 47 mL/min (>60); Globulin 2.7 g/dL (1.7-4.1); Glucose 96 mg/dL (80-110); HEMOLYSIS < 15 (0-50); Sodium 138 mmol/L (137-145)
[2024-03-03 07:00] VITALS: O2SAT 96
[2024-03-03] MEDS: LACTATED RINGERS 1,000 ML 125 ML IV (07:00)
[2024-03-03 07:02] LABS: Potassium 2.7 mmol/L (3.4-5.1)
[2024-03-03 08:00] VITALS: BP 151/68; PULSE 85; RESP 18; TEMP 37.1; O2SAT 96
--- NOTE | 2024-03-03 08:37 | P.HP_ITS ---
History of Present Illness History of Present Illness Chief complaint: Weakness, shaking Narrative: Patient is a 68-year-old female well known to me who presents for nausea and vomiting for the last week. Basically developed some epigastric pain. Does not radiate does not go through to her back. Has had a history of pancreatitis. Recently started on chlorthalidone for her hypertension. She has been having basically intermittent diarrhea mixed with normal stools. Some yellowish discoloration. Constantly nauseated. With dry heaves. Getting worse. Pain does not seem to get better worse. She is taking meloxicam. No other significant change. She basically is weak and shaky and basically does not have any strength. She has not been drinking much has not been eating much. Decreased urine. Has no other significant new change or complaints. 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 Has been managed by background check coordinator. Past surgical history cholecystectomy [facility] Social History household members: spouse Smoking Status: Current every day smoker alcohol intake: never Meds Home Medications and Allergies Home Medications Medication Instructions Recorded Confirmed Type atorvastatin 10 mg tablet 10 mg PO DAILY 03/02/24 03/02/24 History cevimeline 30 mg capsule 30 cap PO BID 03/02/24 03/02/24 History chlorthalidone 25 mg tablet 25 mg PO DAILY 03/02/24 03/02/24 History doxycycline hyclate 100 mg capsule 100 mg PO BID 03/02/24 03/02/24 History furosemide 20 mg tablet 60 mg PO DAILY 03/02/24 03/02/24 History hydroxychloroquine 200 mg tablet 200 mg PO BID 03/02/24 03/02/24 History levothyroxine 75 mcg tablet 75 mcg PO DAILY 03/02/24 03/02/24 History meloxicam 15 mg tablet 15 mg PO DAILY 03/02/24 03/02/24 History nortriptyline 25 mg capsule 25 mg PO ONCE PM 03/02/24 03/02/24 History omeprazole 20 mg capsule,delayed 20 mg PO BID 03/02/24 03/02/24 History release venlafaxine 37.5 mg 37.5 mg PO DAILY 03/02/24 03/02/24 History capsule,extended release 24 hr Allergies Allergy/AdvReac Type Severity Reaction Status Date / Time Penicillins Allergy Seizure Verified 03/02/24 11:28 Exam Vital Signs (past 8 hours): - 03/03/24 08:00 Temperature 98.7 F Pulse Rate 85 Respiratory Rate 18 Blood Pressure 151/68 H Pulse Oximetry 96 Oxygen Flow Rate 0.5 Fraction of Inspired Oxygen 21 SaO2/FiO2 Ratio 461 Oxygen Delivery Method Room Air Oxygen Flow Rate 0.5 Objective Labs 03/03/24 06:01 03/03/24 06:01 Labs: Laboratory Results - last 24 hr 03/02/24 03/02/24 03/02/24 11:42 14:28 21:48 WBC 17.9 H RBC 4.97 Hgb 16.4 H Hct 46.7 H MCV 93.9 MCH 33.1 MCHC 35.2 RDW 13.1 Plt Count 155 Neut % (Auto) 84.0 H Lymph % (Auto) 9.0 L [place] % (Auto) 6.7 Eos % (Auto) 0.1 L Baso % (Auto) 0.2 Neut # (Auto) 63992 H Lymph # (Auto) 1600 [place] # (Auto) 1200 H Eos # (Auto) 0 Baso # (Auto) 0 Sodium 136 L Potassium 3.1 L Chloride 98 Carbon Dioxide 24 BUN 39 H Creatinine 1.70 H Estimated GFR 33 L BUN/Creatinine Ratio 22.9 H Glucose 129 H Lactate 3.2 H 1.2 Calcium 7.4 L Total Bilirubin 0.8 AST 43 H ALT 33 Alkaline Phosphatase 84 Total Protein 7.5 Albumin 4.4 Globulin 3.1 Albumin/Globulin Ratio 1.4 Lipase 136 Procalcitonin 0.058 Urine Color Yellow Urine Appearance Clear Urine pH 6.0 Ur Specific [place] 1.015 Urine Protein Negative Urine Glucose (UA) Negative Urine Ketones Negative Urine Occult Blood Negative Urine Nitrate Negative Urine Bilirubin Negative Urine Urobilinogen 0.2 Ur Leukocyte Esterase Negative Urine RBC None seen Urine WBC None seen Ur Squamous Epith Cells 0-1 /hpf Urine Bacteria None seen Ur Culture Indicated? Cult not indicated Vol Urine Centrifuged 10ml (spun) 03/03/24 06:01 WBC 8.9 D RBC 4.25 Hgb 14.3 Hct 40.0 MCV 94.2 MCH 33.7 MCHC 35.8 RDW 13.2 Plt Count 107 L Neut % (Auto) 62.6 D Lymph % (Auto) 27.0 [place] % (Auto) 9.1 Eos % (Auto) 0.9 L Baso % (Auto) 0.4 Neut # (Auto) 5600 Lymph # (Auto) 2400 [place] # (Auto) 800 Eos # (Auto) 100 Baso # (Auto) 0 Sodium 138 Potassium 2.7 L* Chloride 104 Carbon Dioxide 29 BUN 29 H Creatinine 1.25 H Estimated GFR 47 L BUN/Creatinine Ratio 23.2 H Glucose 96 Lactate Calcium 6.8 L Total Bilirubin 0.6 AST 43 H ALT 27 Alkaline Phosphatase 67 Total Protein 6.0 L Albumin 3.3 L Globulin 2.7 Albumin/Globulin Ratio 1.2 Lipase Procalcitonin Urine Color Urine Appearance Urine pH Ur Specific [place] Urine Protein Urine Glucose (UA) Urine Ketones Urine Occult Blood Urine Nitrate Urine Bilirubin Urine Urobilinogen Ur Leukocyte Esterase Urine RBC Urine WBC Ur Squamous Epith Cells Urine Bacteria Ur Culture Indicated? Vol Urine Centrifuged Assessment & Plan Time-Based Coding :: [TOTAL MINUTES] spent with patient and on the chart (including review of chart, obtaining history, exam, reviewing outside data, placing orders, documenting exam and treatment plan, and counseling patient) on [DATE].
--- NOTE | 2024-03-03 08:37 | P.PN_ITS ---
Subjective Subjective Date Patient Seen: 03/03/24 Time Patient Seen: 08:37 Interval history: Patient seen in follow-up of nausea vomiting diarrhea hypokalemia abdominal pain. Overall feeling slightly better today. No more abdominal pain. Did not get anything for nausea last night. No chest pain shortness for breath continues to have diarrhea. 4 times last night. No blood. No other change. Exam Vital Signs (past 8 hours): - 03/03/24 08:00 Temperature 98.7 F Pulse Rate 85 Respiratory Rate 18 Blood Pressure 151/68 H Pulse Oximetry 96 Oxygen Flow Rate 0.5 Fraction of Inspired Oxygen 21 SaO2/FiO2 Ratio 461 Oxygen Delivery Method Room Air Oxygen Flow Rate 0.5 Narrative Exam Narrative: Alert female in no acute distress fatigued in appearance Lungs are clear heart is regular rate and rhythm abdomen is soft positive bowel sounds nontender Objective Labs 03/03/24 06:01 03/03/24 06:01 Labs: Laboratory Results - last 24 hr 03/02/24 03/02/24 03/02/24 11:42 14:28 21:48 WBC 17.9 H RBC 4.97 Hgb 16.4 H Hct 46.7 H MCV 93.9 MCH 33.1 MCHC 35.2 RDW 13.1 Plt Count 155 Neut % (Auto) 84.0 H Lymph % (Auto) 9.0 L [place] % (Auto) 6.7 Eos % (Auto) 0.1 L Baso % (Auto) 0.2 Neut # (Auto) 90609 H Lymph # (Auto) 1600 [place] # (Auto) 1200 H Eos # (Auto) 0 Baso # (Auto) 0 Sodium 136 L Potassium 3.1 L Chloride 98 Carbon Dioxide 24 BUN 39 H Creatinine 1.70 H Estimated GFR 33 L BUN/Creatinine Ratio 22.9 H Glucose 129 H Lactate 3.2 H 1.2 Calcium 7.4 L Total Bilirubin 0.8 AST 43 H ALT 33 Alkaline Phosphatase 84 Total Protein 7.5 Albumin 4.4 Globulin 3.1 Albumin/Globulin Ratio 1.4 Lipase 136 Procalcitonin 0.058 Urine Color Yellow Urine Appearance Clear Urine pH 6.0 Ur Specific [place] 1.015 Urine Protein Negative Urine Glucose (UA) Negative Urine Ketones Negative Urine Occult Blood Negative Urine Nitrate Negative Urine Bilirubin Negative Urine Urobilinogen 0.2 Ur Leukocyte Esterase Negative Urine RBC None seen Urine WBC None seen Ur Squamous Epith Cells 0-1 /hpf Urine Bacteria None seen Ur Culture Indicated? Cult not indicated Vol Urine Centrifuged 10ml (spun) 03/03/24 06:01 WBC 8.9 D RBC 4.25 Hgb 14.3 Hct 40.0 MCV 94.2 MCH 33.7 MCHC 35.8 RDW 13.2 Plt Count 107 L Neut % (Auto) 62.6 D Lymph % (Auto) 27.0 [place] % (Auto) 9.1 Eos % (Auto) 0.9 L Baso % (Auto) 0.4 Neut # (Auto) 5600 Lymph # (Auto) 2400 [place] # (Auto) 800 Eos # (Auto) 100 Baso # (Auto) 0 Sodium 138 Potassium 2.7 L* Chloride 104 Carbon Dioxide 29 BUN 29 H Creatinine 1.25 H Estimated GFR 47 L BUN/Creatinine Ratio 23.2 H Glucose 96 Lactate Calcium 6.8 L Total Bilirubin 0.6 AST 43 H ALT 27 Alkaline Phosphatase 67 Total Protein 6.0 L Albumin 3.3 L Globulin 2.7 Albumin/Globulin Ratio 1.2 Lipase Procalcitonin Urine Color Urine Appearance Urine pH Ur Specific [place] Urine Protein Urine Glucose (UA) Urine Ketones Urine Occult Blood Urine Nitrate Urine Bilirubin Urine Urobilinogen Ur Leukocyte Esterase Urine RBC Urine WBC Ur Squamous Epith Cells Urine Bacteria Ur Culture Indicated? Vol Urine Centrifuged [facility] Social History household members: spouse Smoking Status: Current every day smoker alcohol intake: never Assessment & Plan Assessment & Plan narrative: Diarrhea. Did not seem to be that impressive but has had 4 episodes over the last 12 hours. Had been on antibiotics for her leg ulcer. Will check C diff. Rechecked after that. Hypokalemia still quite low. Will do 4 K riders this morning and rechecked this afternoon probably add oral potassium tonight. Will see how things go. Wondering if this isn't secondary to her diarrhea. Acute kidney injury. Improved with fluids but not quite normal urine was negative. Will continue to follow. Continue hydration today. Recheck a.m.. Elevated white count actually resolved. Could have been secondary to the stress or related to her diarrhea. Could this be viral it is possible will see how things go. Recheck a.m. to make sure stable. Abdominal pain. Possibly secondary to meloxicam. Could be gastritis although it resolved so quickly it is hard to believe. Could it be related to her diarrhea it is possible certainly much improved. Will see how things go and follow. Hypertension. Mildly elevated I am not going to make any changes right now will see how things go over the next 24 hours. Lupus/[place]. Usual meds. Do not think this is related to the issues but will continue to follow Depression overall doing well Code status full. GI prophylaxis on pantoprazole. Disposition hopefully we can get her potassium stabilized get her diet and diarrhea under control and then hopefully maybe discharge tomorrow will have to see how things go. She understands questions answered. Time-Based Coding :: [TOTAL MINUTES] spent with patient and on the chart (including review of chart, obtaining history, exam, reviewing outside data, placing orders, documenting exam and treatment plan, and counseling patient) on [DATE].
[2024-03-03] MEDS: DOXYCYCLINE HYCLATE 100 MG TABLET PO ×2 (08:57→20:47)
[2024-03-03] MEDS: HYDROXYCHLOROQUINE 200 MG TABLET PO ×2 (08:57→20:48)
[2024-03-03] MEDS: VENLAFAXINE ER 37.5 MG CAP PO (08:57)
[2024-03-03] MEDS: PANTOPRAZOLE 40 MG VIAL 20 MG IV (08:57)
[2024-03-03] MEDS: ENOXAPARIN 40 MG/0.4 ML SYRINGE SUBCUT (08:57)
[2024-03-03] MEDS: NICOTINE 21 MG PATCH TOP (08:57)
[2024-03-03 08:59] VITALS: O2SAT 96
[2024-03-03] MEDS: POTASSIUM CHLORIDE IN WATER 10 MEQ/100 ML PIGGYBACK 100 MEQ IV ×4 (08:59→12:39)
[2024-03-03 14:59] LABS: Clostridium Difficile Tox PCR Negative for C. diff (Negative)
[2024-03-03 15:40] LABS: HEMOLYSIS 16 (0-50); Potassium 3.3 mmol/L (3.4-5.1)
[2024-03-03] MEDS: POTASSIUM CHLORIDE 20 MEQ TAB 40 MEQ PO (17:32)
[2024-03-03 20:00] VITALS: BP 128/75; PULSE 87; RESP 16; TEMP 36.5; O2SAT 98
[2024-03-03] MEDS: NORTRIPTYLINE HCL 25 MG CAPSULE PO (20:48)
[2024-03-04] MEDS: LEVOTHYROXINE 75 MCG TABLET PO (06:06)
[2024-03-04 06:13] LABS: Add Manual Diff / Slide Review NO; Basophils Absolute Auto 100 /uL (0-100); Basophils Percent Auto 0.8 % (0-2); Eosinophils Absolute Auto 100 /uL (0-450); Eosinophils Percent Auto 1.6 % (2-4); Hematocrit 38.2 % (36-46); Hemoglobin 13.3 g/dL (12.0-16.0); Lymphocytes Absolute Auto 2400 /uL (1100-4500); Lymphocytes Percent Auto 33.6 % (25-40); Mean Corpuscular HGB Conc 34.8 % (30-36); Mean Corpuscular Hemoglobin 33.2 PG (26-34); Mean Corpuscular Volume 95.3 fL (80-100); Monocytes Absolute Auto 700 /uL (0-900); Monocytes Percent Auto 9.4 % (3-14); Neutrophils Absolute Auto 4000 /uL (1500-7000); Neutrophils Percent Auto 54.6 % (50-75); Platelet Count 97 X10^3/uL (150-400); Red Blood Cell Count 4.01 X10^6/uL (4.0-5.2); Red Cell Distribution Width 13.2 % (11.6-14.8); White Blood Cell Count 7.3 X10^3/uL (4.5-11.0)
[2024-03-04 06:41] LABS: Alanine Aminotransferase 28 IU/L (<35); Albumin 3.1 g/dL (3.5-5.0); Albumin Globulin Ratio 1.2 (1.0-2.8); Alkaline Phosphatase 55 U/L (38-126); Aspartate Aminotransferase 49 IU/L (14-36); BUN Creatinine Ratio 22.2 (6-22); Bilirubin Total 0.5 mg/dL (0.2-1.3); Blood Urea Nitrogen 28 mg/dL (7-17); Carbon Dioxide 28 mmol/L (22-32); Chloride 106 mmol/L (98-107); Estimated Glomerular Filt Rate 47 mL/min (>60); Globulin 2.5 g/dL (1.7-4.1); Glucose 101 mg/dL (80-110); HEMOLYSIS < 15 (0-50); Potassium 3.4 mmol/L (3.4-5.1); Sodium 140 mmol/L (137-145); Total Protein 5.6 g/dL (6.3-8.2)
[2024-03-04 08:00] VITALS: BP 138/63; PULSE 84; RESP 16; TEMP 36.6; O2SAT 98
[2024-03-04] MEDS: ENOXAPARIN 40 MG/0.4 ML SYRINGE SUBCUT (08:08)
[2024-03-04] MEDS: PANTOPRAZOLE 40 MG VIAL 20 MG IV (08:08)
[2024-03-04] MEDS: ONDANSETRON 4 MG/2 ML INJ IV (08:09)
[2024-03-04] MEDS: HYDROXYCHLOROQUINE 200 MG TABLET PO (08:09)
[2024-03-04] MEDS: VENLAFAXINE ER 37.5 MG CAP PO (08:09)
[2024-03-04] MEDS: POTASSIUM CHLORIDE 20 MEQ TAB 40 MEQ PO (08:09)
[2024-03-04] MEDS: DOXYCYCLINE HYCLATE 100 MG TABLET PO (08:09)
[2024-03-04] MEDS: NICOTINE 21 MG PATCH TOP (08:49)
[2024-03-04 09:00] VITALS: O2SAT 98
--- NOTE | 2024-03-04 09:10 | PM.DS.1 ---
History of Present Illness History of Present Illness Date Patient Seen: 03/04/24 Time Patient Seen: 09:11 Date of Onset of Symptoms: 02/25/24 Chief complaint: Weakness, shaking Narrative: Patient is a 68-year-old female well known to me who presents for nausea and vomiting for the last week. Basically developed some epigastric pain. Does not radiate does not go through to her back. Has had a history of pancreatitis. Recently started on chlorthalidone for her hypertension. She has been having basically intermittent diarrhea mixed with normal stools. Some yellowish discoloration. Constantly nauseated. With dry heaves. Getting worse. Pain does not seem to get better worse. She is taking meloxicam. No other significant change. She basically is weak and shaky and basically does not have any strength. She has not been drinking much has not been eating much. Decreased urine. Has no other significant new change or complaints. 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 Past surgical history cholecystectomy Discharge Providers Provider Date of admission: 03/02/24 15:25 Discharge Date: 03/04/24 Primary care physician: Jeremy Sahni MD Discharge provider: Jeremy Sahni MD Summary Hospital Course Discharge Diagnosis: Diarrhea Hypokalemia Acute kidney injury Elevated white count Abdominal pain Hypertension Lupus/scleroderma Depression Nicotine addiction Hospital Course: Diarrhea. Patient presented with diarrhea. Etiology was unclear. C diff was tested. Seem to be improving. Patient had no other significant change. No abdominal pain except at the beginning which seems to resolve. Could be viral. Will be followed as an outpatient Hypokalemia. Patient was noted on admission to be pretty significantly hypokalemic. She was given p.o. in the emergency room with little improvement. For K riders on day 1 we are given and it was improved she was started on oral replacement and had normalized by day of discharge. Due to etiology being unclear if was probably a combination of her Lasix and diarrhea and dehydration but she will be placed on 20 of potassium b.i.d. and will be sent home and followed as an outpatient. Acute kidney injury. Probably secondary to prerenal issues. No evidence of urinary tract infection or other changes. CT scan showed no abnormality. She did not get contrast. She was given fluids and mostly resolved. Did not completely. Will need to be followed as an outpatient. Elevated white count. Probably stress related. No evidence of infection was found it normalized on day 1 without antibiotics and will be followed. She was much improved and has not whether changes. Abdominal pain. Etiology is unclear. Rapidly improve. How much of this was possibly viral. Possible gastritis although it is resolved much quicker than was expected. Maybe related to her new diuretic medicine chlorthalidone. No evidence of pancreatitis. No abnormality on CT scan at this point it is completely resolved and we will follow. Patient will call if any changes. Hypertension. Mildly elevated during admission but actually pretty good on day of discharge we are going to continue usual meds will need to be adjusted as an outpatient but chlorthalidone will not be used. Lupus/scleroderma. Usual meds. No change. Will follow. Depression. Actually looks pretty good. Has been doing well. Usual meds. History of nicotine addiction. We had a long discussion about quitting we have had this multiple times. Patient was given a patch hopefully she will quit but will see how it goes 40 minutes spent on total patient nursing dictation orders Exam Vital Signs (past 8 hours): - 03/04/24 08:00 Temperature 97.9 F Pulse Rate 84 Respiratory Rate 16 Blood Pressure 138/63 Pulse Oximetry 98 Oxygen Flow Rate 0 Fraction of Inspired Oxygen 22 SaO2/FiO2 Ratio 436 Oxygen Delivery Method Room Air Oxygen Flow Rate 0 Objective Labs 03/04/24 06:02 03/04/24 06:02 Labs: Laboratory Results - last 24 hr 03/03/24 03/03/24 03/04/24 12:54 15:18 06:02 WBC 7.3 RBC 4.01 Hgb 13.3 Hct 38.2 MCV 95.3 MCH 33.2 MCHC 34.8 RDW 13.2 Plt Count 97 L Neut % (Auto) 54.6 Lymph % (Auto) 33.6 [place] % (Auto) 9.4 Eos % (Auto) 1.6 L Baso % (Auto) 0.8 Neut # (Auto) 4000 Lymph # (Auto) 2400 [place] # (Auto) 700 Eos # (Auto) 100 Baso # (Auto) 100 Sodium 140 Potassium 3.3 L 3.4 Chloride 106 Carbon Dioxide 28 BUN 28 H Creatinine 1.26 H Estimated GFR 47 L BUN/Creatinine Ratio 22.2 H Glucose 101 Calcium 7.0 L Total Bilirubin 0.5 AST 49 H ALT 28 Alkaline Phosphatase 55 Total Protein 5.6 L Albumin 3.1 L Globulin 2.5 Albumin/Globulin Ratio 1.2 C. difficile Tox (PCR) Negative for c. diff [facility] Social History household members: spouse Smoking Status: Current every day smoker alcohol intake: never Discharge Plan Discharge Plan Patient Disposition: Home Discharge orders & Medications Prescriptions: New potassium chloride 20 mEq tablet extended release 20 meq PO BID Qty: 60 0RF Continued venlafaxine 37.5 mg capsule,extended release 24hr 37.5 mg PO DAILY doxycycline hyclate 100 mg capsule 100 mg PO BID atorvastatin 10 mg tablet 10 mg PO DAILY levothyroxine 75 mcg tablet 75 mcg PO DAILY nortriptyline 25 mg capsule 25 mg PO ONCE PM cevimeline 30 mg capsule 30 cap PO BID omeprazole 20 mg capsule,delayed release(DR/EC) 20 mg PO BID furosemide 20 mg tablet 60 mg PO DAILY hydroxychloroquine 200 mg tablet 200 mg PO BID Discontinued meloxicam 15 mg tablet 15 mg PO DAILY chlorthalidone 25 mg tablet 25 mg PO DAILY Follow up/Referrals: Jeremy Sahni MD [Primary Care Provider] - 2 Weeks (Please call for appointment) Diet/Activity/Treatments Diet: Diet as Tolerated Activity: As tolerated Skin/Wound/Dressing Care Report to your healthcare provider any signs of infection, such as:: chills, fever, night sweats and increased pain Visit Report/Discharge Packet Stand Alone Forms: Patient Portal/API, Stroke Signs & Symptoms Discharge Data Primary Care Provider: Jeremy Sahni
--- NOTE | 2024-03-04 11:09 | PC.NURSE ---
D/c instructions reviewed with Pt, and all questions were answered. IVs have been removed. Pt agreeable to d/c.
--- NOTE | 2024-03-04 13:27 | CM.DPNOTE ---
Initial DCP Assessment Visit Note Late Entry: Visit was on Reviewed EMR and team rounds for status updates. Met with pt at bedside to introduce self and role, pt was found to be alert/oriented, and able to discuss her d/c plan for home with no CM assistance needs. She lives independently at baseline with her spouse in their own home in [place], her spouse transported her home earlier today after she was medically cleared for discharge. Payor: Medicare PCP: Dr. Sahni Pt is a 68 year-old F who presented to the ED 2-days ago with c/o nausea and vomiting, as well as epigastric pain and diarrhea. She was also quite weak and shaky. In the ED she was dx with dehydration, WINNIE, hypokalemai, and lactic acidosis. She was started on IV fluids, zofran, and oral potassium. No needs were identified for CM assistance during this admission.
== END 2024-03-04 12:26 | disposition home or self-care (01) | DRG 641 ==
LOC: ED 14:44 → AC 15:25
PROVIDERS: Admitting Provider Family Medicine; Emergency Provider Emergency Medicine; PCP Family Medicine; Visit Provider Family Medicine
DX: E86.0 Dehydration (principal); N17.9 Acute kidney failure, unspecified; R19.7 Diarrhea, unspecified; F17.200 Nicotine dependence, unspecified, uncomplicated; E87.6 Hypokalemia; I10 Essential (primary) hypertension; F32.A Depression, unspecified; D72.829 Elevated white blood cell count, unspecified; R10.13 Epigastric pain; M34.9 Systemic sclerosis, unspecified; E78.5 Hyperlipidemia, unspecified; Z79.69 Long term (current) use of other immunomodulators and immunosuppressants
CPT/HCPCS: 36415; 74176; 80053; 81001; 81003; 83605; 83690; 84132; 84145; 85025; 87040; 87493; 93005; 94762; 96361; 96374; 96375; 99285; J1650; J2060; J2405; J2470

== ENCOUNTER 2024-03-06 11:02 | Emergency (ER) | payer MEDICARE, OTHER, SELFPAY ==
[2024-03-02 17:27] VITALS: BMI 34.7
[2024-03-06] VITALS (7 sets, daily range): BP systolic 128–144; BP diastolic 62–85; PULSE 83–93; RESP 13–17; TEMP 36.8; O2SAT 91–98; BMI 34.4
--- NOTE | 2024-03-06 11:19 | EKG_ITS ---
[address] [address] Test Date: 2024-03-06 Pat Name: Billie Juarez Department: Room: Gender: Female [employer] Pay Clerk: KORINA : 1955 Requested By: Order Number: [id number] Reading MD: Noé Lewis Measurements Intervals [place] Rate: 85 P: 30 CO: 162 QRS: -22 QRSD: 72 T: 18 QT: 362 QTc: 430 Interpretive Statements Undetermined rhythm Inferior infarct , age undetermined Electronically Signed On 03-06-2024 13:26:39 PDT by Noé Lewis
[2024-03-06] MEDS: ONDANSETRON 4 MG/2 ML INJ IV (11:37)
--- NOTE | 2024-03-06 11:39 | ED.WEAKNESS ---
HPI - Weakness General Chief complaint: Weakness Stated complaint: weak, shaking, d/v Time Seen by Provider: 03/06/24 11:33 Source: patient Mode of arrival: Wheelchair History of Present Illness HPI Narrative: Patient returns for continued nausea vomiting diarrhea as well as weakness. Patient discharged from this hospital by primary care Dr. Jeremy Sahni 2 days ago. For the same symptoms. Had CT abdomen pelvis which was unremarkable. She states she was doing well but overnight worsening weakness watery diarrhea and nausea. No fall or injury. Denies any pain. Related Data Home Medications Medication Instructions Recorded Confirmed atorvastatin 10 mg tablet 10 mg PO DAILY 03/02/24 03/02/24 cevimeline 30 mg capsule 30 cap PO BID 03/02/24 03/02/24 doxycycline hyclate 100 mg capsule 100 mg PO BID 03/02/24 03/02/24 furosemide 20 mg tablet 60 mg PO DAILY 03/02/24 03/02/24 hydroxychloroquine 200 mg tablet 200 mg PO BID 03/02/24 03/02/24 levothyroxine 75 mcg tablet 75 mcg PO DAILY 03/02/24 03/02/24 nortriptyline 25 mg capsule 25 mg PO ONCE PM 03/02/24 03/02/24 omeprazole 20 mg capsule,delayed 20 mg PO BID 03/02/24 03/02/24 release venlafaxine 37.5 mg 37.5 mg PO DAILY 03/02/24 03/02/24 capsule,extended release 24 hr Previous Rx's Medication Instructions Recorded potassium chloride 20 mEq 20 meq PO BID #60 tabs 03/04/24 tablet,extended release ondansetron 4 mg disintegrating 4 mg PO Q8H PRN nausea and 03/06/24 tablet vomiting #20 tabs Allergies Allergy/AdvReac Type Severity Reaction Status Date / Time Sulfa (Sulfonamide Allergy Verified 03/06/24 11:21 Antibiotics) Penicillins AdvReac Severe Seizure Verified 03/03/24 11:01 Review of Systems Review of Systems Narrative: GENERAL: negative chills, fatigue, malaise, fever, sweats. HEENT: negative sinus pain, ear pain, sore throat RESPIRATORY: negative dyspnea, cough CARDIOVASCULAR: negative chest pain, palpitations GASTROINTESTINAL: negative nausea, vomiting, abdominal pain : negative dysuria, frequency, hematuria MUSCULOSKELETAL: negative muscle or bony pain SKIN: negative rash, skin lesions NEUROLOGIC: negative weakness, numbness ROS Unobtainable: All systems reviewed & are unremarkable except as noted in HPI and below Patient History Social History household members: spouse Smoking Status: Current every day smoker alcohol intake: never Smoking Status: Current every day smoker tobacco type: cigarettes alcohol intake frequency: holidays/special occasions only Substance Use Type: does not use Exam Narrative Exam Narrative: GENERAL: in no distress, not toxic not dyspneic HEAD: Normocephalic. EYES: Pupils equal round ENT: Mucous membranes moist. NECK: Trachea midline. CARDIOVASCULAR: Regular rate and rhythm RESPIRATORY: Clear to auscultation. Breath sounds equal bilaterally. No wheezes, rales, or rhonchi. GASTROINTESTINAL: Abdomen soft, non-tender, abdomen is soft flat nontender no peritoneal signs bowel sounds are present. No guarding or rebound no pain out of portion exam. No CVA tenderness EXTREMITIES: No gross deformities. BACK: No flank tenderness. NEURO: AOx4. SKIN: Warm and dry PSYCH: Not anxious, is cooperative Initial Vital Signs Initial Vital Signs: Vital Signs Temperature 98.2 F 03/06/24 11:03 Pulse Rate 93 H 03/06/24 11:03 Respiratory Rate 13 03/06/24 11:03 Blood Pressure 132/85 03/06/24 11:03 Pulse Oximetry 97 03/06/24 11:03 Oxygen Delivery Method Room Air 03/06/24 11:03 Course Orders Ordered: Discontinued Medications Sodium Chloride (Normal Saline 0.9%) 1,000 mls @ 1,000 mls/hr IV BOLUS ONE Stop: 03/06/24 12:38 Last Infusion: 03/06/24 12:50 Dose: Infused Documented By: Admin: 03/06/24 11:47 Dose: 1,000 mls/hr Documented By: JACQUES Ondansetron HCl (Ondansetron 4 Mg/2 Ml Inj) 4 mg IV NOW PRN PRN Reason: Nausea And Vomiting Last Admin: 03/06/24 11:37 Dose: 4 mg Documented By: JACQUES Ondansetron HCl (Ondansetron 4 Mg Odt) 4 mg PO NOW PRN PRN Reason: Nausea And Vomiting Vital Signs Vital signs: Vital Signs - 8 hr 03/06/24 11:03 03/06/24 11:12 03/06/24 11:12 Temperature 98.2 F Pulse Rate 93 H 92 H Respiratory Rate 13 Blood Pressure 132/85 132/85 Pulse Oximetry 97 96 Oxygen Delivery Method Room Air 03/06/24 11:30 03/06/24 11:30 03/06/24 12:00 Temperature Pulse Rate 86 Respiratory Rate 13 Blood Pressure 134/68 144/67 H Pulse Oximetry 98 Oxygen Delivery Method Room Air 03/06/24 12:00 03/06/24 12:30 Temperature Pulse Rate 83 87 Respiratory Rate 17 17 Blood Pressure Pulse Oximetry 91 95 Oxygen Delivery Method MDM - Weakness Lab Data 03/06/24 11:27 03/06/24 11:27 Labs: Lab Results 03/06/24 03/06/24 Range/Units 11:27 11:40 WBC 8.6 (4.5-11.0) X10^3/uL RBC 4.77 (4.0-5.2) X10^6/uL Hgb 15.9 (12.0-16.0) g/dL Hct 45.4 (36-46) % MCV 95.2 (80-100) fL MCH 33.3 (26-34) PG MCHC 34.9 (30-36) % RDW 13.4 (11.6-14.8) % Plt Count 104 L (150-400) X10^3/uL Neut % (Auto) 74.4 (50-75) % Lymph % (Auto) 17.9 L (25-40) % [place] % (Auto) 6.9 (3-14) % Eos % (Auto) 0.4 L (2-4) % Baso % (Auto) 0.4 (0-2) % Neut # (Auto) 6400 (9847-8904) /uL Lymph # (Auto) 1500 (5396-5440) /uL [place] # (Auto) 600 (0-900) /uL Eos # (Auto) 0 (0-450) /uL Baso # (Auto) 0 (0-100) /uL Sodium 141 (137-145) mmol/L Potassium 3.4 (3.4-5.1) mmol/L Chloride 104 (98-107) mmol/L Carbon Dioxide 28 (22-32) mmol/L BUN 20 H (7-17) mg/dL Creatinine 0.93 (0.52-1.04) mg/dL Estimated GFR > 60 (>60) mL/min BUN/Creatinine Ratio 21.5 (6-22) Glucose 100 (80-110) mg/dL Calcium 8.1 L (8.4-10.2) mg/dL Total Bilirubin 0.7 (0.2-1.3) mg/dL AST 49 H (14-36) IU/L ALT 36 H (<35) IU/L Alkaline Phosphatase 62 (38-126) U/L Total Protein 6.9 (6.3-8.2) g/dL Albumin 4.1 (3.5-5.0) g/dL Globulin 2.8 (1.7-4.1) g/dL Albumin/Globulin Ratio 1.5 (1.0-2.8) Lipase 110 (23-300) U/L Chlamy pneumoniae PCR Not detected (Not Detect) Adenovirus (PCR) Not detected (Not Detect) B. pertussis DNA (PCR) Not detected (Not Detect) B.parapertussis DNA PCR Not detected (Not Detecte) Coronavirus OC43 (PCR) Not detected (Not Detect) Coronavirus HKU1 (PCR) Not detected (Not Detect) Coronavirus 229E (PCR) Not detected (Not Detect) SARS-CoV-2 (PCR) Not detected (Not Detecte) Coronavirus NL63 (PCR) Not detected (Not Detect) Human Metapneumovir PCR Not detected (Not Detect) Influenza Type A (PCR) Not detected (Not Detect) Influenza Type B (PCR) Not detected (Not Detect) M. pneumoniae (PCR) Not detected (Not Detect) Parainfluenza 1 (PCR) Not detected (Not Detect) Parainfluenza 2 (PCR) Not detected (Not Detect) Parainfluenza 3 (PCR) Not detected (Not Detect) Parainfluenza 4 (PCR) Not detected (Not Detect) RSV (PCR) Not detected (Not Detect) Entero/Rhino (PCR) Not detected (Not Detect) Urine Dip Bedside Urine Glucose Negative Bedside Urine Bilirubin - Negative Bedside Urine Ketone - Negative Urine Specific Icard 1.010 Bedside Urine Occult Blood - Negative Bedside Urine pH 6.0 Bedside Urine Protein - Negative Bedside Urine Urobilinogen - Negative Bedside Urine Nitrite - Negative Bedside Urine Leukocytes - Negative Esterase MDM Narrative Medical decision making narrative: Patient returns for continued nausea vomiting diarrhea as well as weakness. Patient discharged from this hospital by primary care Dr. Jeremy Sahni 2 days ago. For the same symptoms. Had CT abdomen pelvis which was unremarkable. She states she was doing well but overnight worsening weakness watery diarrhea and nausea. No fall or injury. Denies any pain. After history and exam CBC CMP respiratory panel Zofran normal saline EKG [facility] Medical records reviewed: Discharge summary from 2 days ago Differential considered: Includes but not limited to viral gastroenteritis dehydration acute renal injury Lab Test results independently reviewed as above. Pertinent findings: WBC 8.6 hemoglobin 15.9 sodium 141 potassium 3.4 bicarb 28 BUN 20 creatinine 0.93 GFR greater than 60 calcium 8.1 AST 49 ALT 36 lipase 110 respiratory panel negative Independently reviewed EKG EKG rate 85 artifact noted but P waves are noted, sinus rhythm Imaging studies independently reviewed: None indicated at this time. Exam is reassuring Consultations: None indicated this time Treatments: Zofran normal saline Re-evaluations: 1:12 p.m.. Spoke with patient and results. They are reassuring. She is symptom-free now. They were supposed to get nausea medication but it was sent to the wrong pharmacy when she was discharged 2 days ago. I will electronically prescribe it to their pharmacy of choice. Return precautions reviewed. They desire discharge home Discussion: Appropriate for discharge home exam is reassuring. Patient symptom free at time of discharge. Never had abdominal pain. at bedside. 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 No imaging indicated this time. Laboratory studies and exam is reassuring Diagnosis: Nausea and vomiting Discharge Plan Departure Patient Disposition: Home Clinical Impression: Nausea & vomiting Qualifiers: Vomiting type: unspecified Qualified Code(s): R11.2 - Nausea with vomiting, unspecified Instructions: DI for Nausea -- Adult Activity Restrictions/Additional Instructions: Please see family doctor next week for re-evaluation. Nausea medication prescription has been sent to your pharmacy to [facility]ling tank operator today. Keep well hydrated. Return worse if any questions or concerns. Your laboratory results and exam are reassuring today. Return if worse if any questions or concerns Prescriptions: New ondansetron 4 mg tablet,disintegrating 4 mg PO Q8H PRN (Reason: nausea and vomiting) Qty: 20 0RF No Action venlafaxine 37.5 mg capsule,extended release 24hr 37.5 mg PO DAILY doxycycline hyclate 100 mg capsule 100 mg PO BID atorvastatin 10 mg tablet 10 mg PO DAILY levothyroxine 75 mcg tablet 75 mcg PO DAILY nortriptyline 25 mg capsule 25 mg PO ONCE PM cevimeline 30 mg capsule 30 cap PO BID omeprazole 20 mg capsule,delayed release(DR/EC) 20 mg PO BID furosemide 20 mg tablet 60 mg PO DAILY hydroxychloroquine 200 mg tablet 200 mg PO BID potassium chloride 20 mEq tablet extended release 20 meq PO BID Qty: 60 0RF Referrals: Jeremy Sahni MD [Primary Care Provider] - Stand Alone Forms: Patient Portal/API
[2024-03-06 11:40] LABS: Add Manual Diff / Slide Review NO; Basophils Absolute Auto 0 /uL (0-100); Basophils Percent Auto 0.4 % (0-2); Eosinophils Absolute Auto 0 /uL (0-450); Eosinophils Percent Auto 0.4 % (2-4); Hematocrit 45.4 % (36-46); Hemoglobin 15.9 g/dL (12.0-16.0); Lymphocytes Absolute Auto 1500 /uL (1100-4500); Lymphocytes Percent Auto 17.9 % (25-40); Mean Corpuscular HGB Conc 34.9 % (30-36); Mean Corpuscular Hemoglobin 33.3 PG (26-34); Mean Corpuscular Volume 95.2 fL (80-100); Monocytes Absolute Auto 600 /uL (0-900); Monocytes Percent Auto 6.9 % (3-14); Neutrophils Absolute Auto 6400 /uL (1500-7000); Neutrophils Percent Auto 74.4 % (50-75); Platelet Count 104 X10^3/uL (150-400); Red Blood Cell Count 4.77 X10^6/uL (4.0-5.2); Red Cell Distribution Width 13.4 % (11.6-14.8); White Blood Cell Count 8.6 X10^3/uL (4.5-11.0)
[2024-03-06] MEDS: SODIUM CHLORIDE 0.9% 1,000 ML 1000 ML IV (11:47)
[2024-03-06 11:49] LABS: Alanine Aminotransferase 36 IU/L (<35); Albumin 4.1 g/dL (3.5-5.0); Albumin Globulin Ratio 1.5 (1.0-2.8); Alkaline Phosphatase 62 U/L (38-126); Aspartate Aminotransferase 49 IU/L (14-36); BUN Creatinine Ratio 21.5 (6-22); Bilirubin Total 0.7 mg/dL (0.2-1.3); Blood Urea Nitrogen 20 mg/dL (7-17); Calcium 8.1 mg/dL (8.4-10.2); Carbon Dioxide 28 mmol/L (22-32); Chloride 104 mmol/L (98-107); Estimated Glomerular Filt Rate > 60 mL/min (>60); Globulin 2.8 g/dL (1.7-4.1); Glucose 100 mg/dL (80-110); HEMOLYSIS < 15 (0-50); Lipase 110 U/L (23-300); Potassium 3.4 mmol/L (3.4-5.1); Sodium 141 mmol/L (137-145); Total Protein 6.9 g/dL (6.3-8.2)
[2024-03-06 12:40] LABS: Adenovirus Not Detected (Not Detect); B. parapertussis Not Detected (Not Detecte); Bordetella pertussis Not Detected (Not Detect); Chlamydophila pneumoniae Not Detected (Not Detect); Coronavirus 229E Not Detected (Not Detect); Coronavirus HKU1 Not Detected (Not Detect); Coronavirus NL 63 Not Detected (Not Detect); Coronavirus OC43 Not Detected (Not Detect); Human Metapneumovirus Not Detected (Not Detect); Human Rhinovirus/Enterovirus Not Detected (Not Detect); Influenza A Not Detected (Not Detect); Influenza B Not Detected (Not Detect); Mycoplasma pneumoniae Not Detected (Not Detect); Parainfluenza Virus 1 Not Detected (Not Detect); Parainfluenza Virus 2 Not Detected (Not Detect); Parainfluenza Virus 3 Not Detected (Not Detect); Parainfluenza Virus 4 Not Detected (Not Detect); Respiratory Syncytial Virus Not Detected (Not Detect); SARS- CoV-2 Not Detected (Not Detecte)
== END 2024-03-06 13:27 | disposition home or self-care (01) ==
PROVIDERS: Emergency Provider Emergency Medicine; PCP Family Medicine
DX: R11.2 Nausea with vomiting, unspecified (principal); R19.7 Diarrhea, unspecified; R10.9 Unspecified abdominal pain; Z11.52 Encounter for screening for COVID-19
CPT/HCPCS: 36415; 80053; 81003; 83690; 85025; 87633; 93005; 96361; 96374; 99284; J2405

== ENCOUNTER → 2024-10-24 11:11 | Outpatient (CLI) | payer MEDICARE, OTHER, SELFPAY ==
[2024-03-02 17:27] VITALS: BMI 34.7
--- NOTE | 2024-10-24 11:13 | DI.MG.S_ITS ---
MM screening mammo BI: 10/24/2024. BI-RADS: 1 CLINICAL: 69-year old female for bilateral screening mammogram. Tyrer-Cuzick lifetime risk of 4.8%. No personal or first-degree family history of breast cancer. PRIOR EXAMS 07/19/2023, 12/03/2020, 10/20/2018, 12/09/2014. MAMMOGRAPHY TECHNIQUE: 2D and 3D (tomosynthesis) digital mammographic views obtained, with additional images as needed for full coverage. Current study was also evaluated with a Computer Aided Detection (CAD) system. DENSITY A. The breasts are almost entirely fatty. MAMMOGRAPHY FINDINGS Bilateral: No suspicious mass, asymmetry, microcalcification, or other abnormality seen. No significant change from comparison. IMPRESSION: * No evidence of malignancy. RECOMMENDATIONS Bilateral * Annual screening mammography. OVERALL ASSESSMENT CATEGORY BI-RADS-1: Negative. The [employer] recommends annual screening mammography beginning at age 40 for women with average risk of breast cancer. ELECTRONICALLY SIGNED: Vickie Rivera M.D. on 10/26/2024 at 03:53:29 PM PT Interpreting Station ID: [id number]
--- NOTE | 2024-10-24 11:13 | DI.CT.S_ITS ---
PROCEDURE: CT LUNG LOW DOSE SCREENING INDICATIONS: nicotine dependence, screening TECHNIQUE: Noncontrast 2.0-2.5 mm thick sections acquired from the pulmonary apices to the posterior costophrenic angles. 7 mm thick axial MIP, and 5 mm coronal and sagittal reformats were then acquired. For radiation dose reduction, the following was used: automated exposure control, adjustment of mA and/or kV according to patient size. COMPARISON: [facility], CT, CT ABDOMEN PELVIS WO CON, 03/02/2024, 12:49. FINDINGS: Image quality: Diagnostic. Lower Neck: No enlarged lymph nodes. Thyroid: No thyroid nodules which require sonographic follow up, per consensus guidelines. Axillae: No enlarged lymph nodes. Chest Wall: Unremarkable. Bones: No aggressive appearing bony lesions. No acute vertebral body compression fractures. Lungs and Pleura: No pneumothorax or pleural effusions. No consolidations. 1 cm solid nodule is seen in posterior right lower lobe series 3, image 186. Linear scarring/atelectasis scattered in periphery of bilateral lung casillas are seen. Subtle ill-defined patchy ground-glass opacities also noted in bilateral lung casillas. Heart: Heart size is normal. No pericardial effusion. Thoracic Vessels: The aorta and pulmonary arteries demonstrate normal size. 3 vessel coronary artery atherosclerotic calcifications are seen. Mediastinum and [place]: Enlarged precarinal lymph no measures 1.5 cm in short axis diameter is seen series 2, image 37. Esophagus: No wall thickening. No hiatal hernia. Upper Abdomen: Visualized upper abdomen solid organs and bowel loops appear normal. Gallbladder is surgically absent. IMPRESSION: 1. 1 cm solid nodule in posterior aspect of right lower lobe compared to 1.4 cm in 2023 study. No other suspicious pulmonary nodules. 2. Scattered ill-defined ground-glass opacities in bilateral lung casillas concerning for mild pneumonitis. 3. Prominent precarinal lymph node which may be reactive in nature. LUNG-RADS 4A, Suspicious; recommend 3-month followup CT, or PET-CT when there is a solid component of 8 mm or more. Clinically Significant Non-pulmonary Findings: 3 vessel coronary artery atherosclerotic calcifications. Dictated by: Papo Casey M.D. on 10/25/2024 at 20:37 Approved by: Papo Casey M.D. on 10/25/2024 at 20:45
== END ==
LOC: MAMMO 11:12
PROVIDERS: PCP Family Medicine; Referring Provider Family Medicine; Visit Provider Family Medicine
DX: Z12.31 Encounter for screening mammogram for malignant neoplasm of breast (principal); R92.313 Mammographic fatty tissue density, bilateral breasts; Z12.2 Encounter for screening for malignant neoplasm of respiratory organs; F17.210 Nicotine dependence, cigarettes, uncomplicated; R91.1 Solitary pulmonary nodule; I25.10 Atherosclerotic heart disease of native coronary artery without angina pectoris; R59.0 Localized enlarged lymph nodes
CPT/HCPCS: 71271; 77063; 77067